=== PATIENT | male | born 1975 | race Caucasian/White ===

== ENCOUNTER 2016-07-14 22:43 | Emergency (ER) | payer MEDICAID ==
[~2016-07-14] VITALS: Ht 167.6 cm; Wt 75.0 kg
[2016-07-15 03:42] VITALS: BP 131/79
== END 2016-07-15 03:48 | disposition home or self-care (01) ==
LOC: EMS 22:45
DX: K40.90 Unilateral inguinal hernia, without obstruction or gangrene, not specified as recurrent (principal); J06.9 Acute upper respiratory infection, unspecified
CPT/HCPCS: 99282